=== PATIENT | female | born 1950 | race Caucasian/White ===

== ENCOUNTER → 2020-11-30 | Outpatient (CLI) | payer MEDICARE, OTHER ==
[~2020-11-30] MED LIST: AZELASTINE137 MCG/0.; CATAPRES 0.1MG0.1 MG PO; CYMBALTA 30 MG30 MG PO; K-DUR TAB 10 M10 MEQ PO; POTASSIUM CITR10 MEQ PO; RAMELTEON8 MG PO; SYNTHROID75 MCG PO; VANCOMYCIN HCL250 MG PO; ZOCOR20 MG PO
== END ==
LOC: KOH-I 12:40
DX: M54.2 Cervicalgia (principal); M50.30 Other cervical disc degeneration, unspecified cervical region
CPT/HCPCS: 70360